=== PATIENT | female | born 1990 | race Two or more races ===

== ENCOUNTER 2020-10-19 13:07 | Outpatient (REF) | payer SELFPAY ==
[2020-10-20 08:48] LABS: ~Hepatitis B Surface Antibody REACTIVE (Nonreactive)
[2020-10-22 18:21] LABS: TS Negative Control Passed; TS Panel A 0; TS Panel B 1; TS Positive Control Passed; TSpotTB Negative (SeeBelow)
== END 2020-10-19 13:08 | disposition home or self-care (01) ==
LOC: WCCF 13:07
PROVIDERS: PCP Internal Medicine; Visit Provider Internal Medicine
DX: Z02.1 Encounter for pre-employment examination (principal)
CPT/HCPCS: 36415; 86481; 86706

== ENCOUNTER 2021-01-13 19:00 | Outpatient (REF) | payer OTHER, SELFPAY ==
[2021-01-13 19:43] LABS: Influenza A PCR NEGATIVE (Negative); Influenza B PCR NEGATIVE (Negative); Resp Syncy Virus RNA Qual PCR NEGATIVE (Negative); SARS COV2 PCR INHOUSE NEGATIVE (Negative)
== END 2021-01-13 19:01 | disposition home or self-care (01) ==
LOC: HO.LNP 19:00
PROVIDERS: Visit Provider Family Medicine
DX: Z20.822 Contact with and (suspected) exposure to COVID-19 (principal); B34.9 Viral infection, unspecified
CPT/HCPCS: 0241U